=== PATIENT | female | born 1995 | race Caucasian/White ===

== ENCOUNTER 2018-08-09 10:53 | Emergency (ER) | payer MEDICAID ==
[2018-08-09 11:02] VITALS: BMI 24.5
[2018-08-09] MEDS ORDERED: Oxycodone/Acetaminophen 5/325 mg Tab PO STA (11:11)
[2018-08-09] MEDS ORDERED: Lidocaine 1% w Epi 1:100,000 Inj INJ ONE (11:11)
[2018-08-09] MEDS ORDERED: Tmp-Smz 800 mg-160 mg DS Tab PO STA (11:12)
[2018-08-09] MEDS ORDERED: Oxycodone/Acetaminophen 5/325 mg Tab ONE (11:22)
[2018-08-09] MEDS ORDERED: Tmp-Smz 800 mg-160 mg DS Tab ONE (11:23)
--- NOTE | 2018-08-09 11:24 | C.PDOC ---
History Of Present Illness 23 year old female presents to the emergency department with complaints of an abscess to her buttock area since Sunday08-03-18. Patient reports taking Motrin 600mg this morning at 0830, and she reports that her tetanus vaccination is up to date. Denies fever, abdominal pain, perirectal pain, change in bm, or h/o similar episodes. Time Seen by Provider: 08/09/18 11:05 Chief Complaint (Nursing): Abnormal Skin Integrity History Per: Patient History/Exam Limitations: no limitations Onset/Duration Of Symptoms: Days (6) Current Symptoms Are (Timing): Still Present Location Of Injury: Posterior: Buttock Past Medical History Reviewed: Historical Data, Nursing Documentation, Vital Signs Vital Signs: Last Vital Signs Temp 98.0 F 08/09/18 11:03 Pulse 100 H 08/09/18 11:03 Resp 18 08/09/18 11:03 BP 109/66 08/09/18 11:03 Pulse Ox 100 08/09/18 11:03 - Medical History PMH: No Chronic Diseases Surgical History: No Surg Hx Family History: States: No Known Family Hx - Social History Hx Alcohol Use: No Hx Substance Use: No - Immunization History Hx Tetanus Toxoid Vaccination: Yes Hx Influenza Vaccination: No Hx Pneumococcal Vaccination: No Review Of Systems Except As Marked, All Systems Reviewed And Found Negative. Constitutional: Negative for: Fever, Chills Skin: Positive for: Other (abscess) Physical Exam - Physical Exam Appears: Well, Non-toxic, No Acute Distress Skin: Warm, Dry, Other (4cm area of erythema, swelling, tenderness to the right intergluteal cleft with central fluctuance) Head: Atraumatic, Normacephalic Eye(s): bilateral: Normal Inspection, EOMI Nose: Normal Oral Mucosa: Moist Neck: Normal ROM, Supple Chest: Symmetrical Respiratory: No Accessory Muscle Use, Other (speaking in complete sentences) Back: No CVA Tenderness, No Vertebral Tenderness Extremity: Normal ROM Neurological/Psych: Oriented x3 ED Course And Treatment O2 Sat by Pulse Oximetry: 100 (RA) Pulse Ox Interpretation: Normal Progress Note: Plan: Bactrim DS 1 tab PO. Percocet 1 tab PO. Xylocaine 1% 5ml INJ. Wound Culture and Gram Stain. Pt was instructed wound care and wound check in 2 days. - Incision & Drainage Of Abscess Anesthesia: Lidocaine 1%, With Epi Prep Used: Sterile Water, Betadine Procedure: Incised W/Scalpel Blade#: (11), Drained Pus, Irrigated Cavity W/Saline, Probed To Break Up Loculations, Packed W/Gauze, Cultures Obtained And Sent To Lab Disposition - Disposition Disposition: HOME/ ROUTINE Disposition Time: 12:18 Condition: STABLE Additional Instructions: Wound check in 2 days. 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 - Scribe Statement The provider has reviewed the documentation as recorded by the Scribe All medical record entries made by the Scribe were at my direction and personally dictated by me. I have reviewed the chart and agree that the record accurately reflects my personal performance of the history, physical exam, medical decision making, and the department course for this patient. I have also personally directed, reviewed, and agree with the discharge instructions and disposition.
[2018-08-09 12:21] VITALS: BP 114/76; PULSE 98; RESP 16; TEMP 98.2
[2018-08-09 12:27] VITALS: O2SAT 100
== END 2018-08-09 12:32 | disposition home or self-care (01) ==
LOC: C.ER 10:53
DX: L02.31 Cutaneous abscess of buttock (principal)

== ENCOUNTER 2018-08-11 10:46 | Emergency (ER) | payer MEDICAID ==
[2018-08-11 10:47] VITALS: BMI 24.5
[2018-08-11 11:02] VITALS: BP 116/75; PULSE 87; RESP 20; TEMP 99.1; O2SAT 100
--- NOTE | 2018-08-11 11:29 | C.PDOC ---
History Of Present Illness 23 year old female presents to the ED for wound check. Patient had an I&D procedure for rectal abscess on 08/09. Reports wound packing fell of this morning when she was changing. She denies any drainage, pain, fever, chills. Patient c/o mild nausea after she takes medications. Time Seen by Provider: 08/11/18 11:08 Chief Complaint (Nursing): Wound Check History Per: Patient History/Exam Limitations: no limitations Onset/Duration Of Symptoms: Abscess Location Of Injury: Posterior: Perineum (abscess) Quality Of Symptoms: denies: Painful, Draining Past Medical History Reviewed: Historical Data, Nursing Documentation, Vital Signs Vital Signs: Last Vital Signs Temp 99.1 F 08/11/18 10:59 Pulse 87 08/11/18 10:59 Resp 20 08/11/18 10:59 BP 116/75 08/11/18 10:59 Pulse Ox 100 08/11/18 10:59 - Medical History PMH: No Chronic Diseases Surgical History: No Surg Hx Family History: States: No Known Family Hx - Social History Hx Alcohol Use: No Hx Substance Use: No - Immunization History Hx Tetanus Toxoid Vaccination: Yes Hx Influenza Vaccination: No Hx Pneumococcal Vaccination: No Review Of Systems Except As Marked, All Systems Reviewed And Found Negative. Constitutional: Negative for: Fever, Chills Gastrointestinal: Negative for: Nausea, Vomiting Skin: Positive for: Other (wound check for abscess ) Physical Exam - Physical Exam Appears: Non-toxic, No Acute Distress Skin: Warm, Dry, No Rash Head: Normacephalic Eye(s): bilateral: Normal Inspection Oral Mucosa: Moist Neck: Supple Chest: Symmetrical Rectal: Other ((-) drainage (-) erythema (+) minimal tenderness to abscess area ) Neurological/Psych: Oriented x3, Normal Speech Gait: Steady ED Course And Treatment O2 Sat by Pulse Oximetry: 100 (RA) Pulse Ox Interpretation: Normal Progress Note: Wound was cleaned and dressed. Patient is stable to be d/c home. Disposition - Disposition Disposition: HOME/ ROUTINE Disposition Time: 11:30 Condition: STABLE Additional Instructions: Follow up with PMD within 1-2 days. Return to ED if feel worse. 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 - Scribe Statement The provider has reviewed the documentation as recorded by the Scribe Eve Dowell All medical record entries made by the Scribe were at my direction and personally dictated by me. I have reviewed the chart and agree that the record accurately reflects my personal performance of the history, physical exam, medical decision making, and the department course for this patient. I have also personally directed, reviewed, and agree with the discharge instructions and disposition.
== END 2018-08-11 11:48 | disposition home or self-care (01) ==
LOC: C.ER 10:46
DX: Z48.00 Encounter for change or removal of nonsurgical wound dressing (principal)